=== PATIENT | female | born 1980 | race American Indian/Alaskan Native ===

== ENCOUNTER 2018-01-15 20:46 | Emergency (ER) | payer SELFPAY ==
[2018-01-15 22:21] VITALS: BP 120/69
[2018-01-16] MEDS ORDERED: MOTRIN PO ONE (00:44)
--- NOTE | 2018-01-16 00:44 | Emergency Department Report ---
HPI - General Chief Complaint: Dental/Oral Time Seen by Provider: 01/16/18 00:39 - HPI HPI: Patient here complaining of toothache to her left lower tooth. She said this has been going on for 2 days. She does not have a dentist nor does she have insurance. Patient does not have a primary care physician. Reports pain is none of the tendon aching and aggravated by eating and talking, no alleviating factors. She states that she took [id number] pain medication but it is not helping. Denies any nasal congestion, sore throat or runny nose. Denies any cough, shortness of breath or chest pain. Denies any headache. Denies any facial pain. Denies any fever or chills. Pain is 9 out of 10 and aching . ED Past Medical Hx - Past Medical History Previous Medical History?: No Hx Hypertension: No Hx Congestive Heart Failure: No Hx Diabetes: No Hx Deep Vein Thrombosis: No Hx Renal Disease: No Hx Sickle Cell Disease: No Hx Seizures: No Hx Asthma: No Hx COPD: No - Surgical History Past Surgical History?: Yes Additional Surgical History: tubal ligation - Family History Family history: no significant - Social History Smoking Status: Never Smoker Substance Use Type: None - Medications Home Medications: Home Medications Medication Instructions Recorded Confirmed Last Taken Type Iron 18 mg PO BID #60 tab 11/02/13 Unknown Rx Lidocaine/Prilocaine [Emla Cream] 5 gm TP ONCE #1 cream..g. 11/02/13 Unknown Rx Acetaminophen/Codeine [Tylenol #3] 1 tab PO Q6H PRN #15 tab 05/27/15 Unknown Rx Amoxicillin [Trimox CAP] 500 mg PO Q8H #21 capsule 05/27/15 Unknown Rx Naproxen [Naprosyn] 500 mg PO BID PRN #20 tablet 05/07/16 Unknown Rx Acetaminophen/Codeine [Tylenol 1 tab PO Q6H PRN #12 tab 01/16/18 Unknown Rx /Codeine # 3 tab] Amoxicillin [Trimox CAP] 500 mg PO Q8H 10 Days #30 capsule 01/16/18 Unknown Rx Ibuprofen [Motrin 800 MG tab] 800 mg PO TID PRN #21 tablet 01/16/18 Unknown Rx ED Review of Systems ROS: Stated complaint: TOOTHACHE Other details as noted in HPI Comment: All other systems reviewed and negative Constitutional: no symptoms reported Eyes: denies: eye pain, eye discharge ENT: dental pain. denies: ear pain, throat pain, hearing loss, epistaxis, congestion Cardiovascular: denies: chest pain, palpitations, dyspnea on exertion, orthopnea , edema, syncope, paroxysmal nocturnal dyspnea Gastrointestinal: denies: abdominal pain, nausea, vomiting, diarrhea, constipation Genitourinary: denies: dysuria, hematuria Musculoskeletal: denies: back pain, joint swelling, arthralgia, myalgia Skin: denies: rash Neurological: denies: headache, weakness, numbness, paresthesias, confusion, abnormal gait, vertigo Physical Exam - Physical Exam Vital Signs: Vital Signs 01/15/18 22:19 Temperature 98.8 F Pulse Rate 78 Respiratory 17 Rate Blood Pressure 120/69 O2 Sat by Pulse 100 Oximetry General: This is a 37-year-old female well-nourished well-developed in no acute distress. Physical Exam: Head: Normocephalic atraumatic Ears:BIateral TM pearly maki. Edouard EAC with normal exam. No mastoid bone tenderness. Mouth: Moist, no pharyngeal erythema or exudate . No tonsillar erythema or exudate. UVULA midline and oral airways patent. No peritonsillar abscess. Tooth #18 and 17 with dental caries, tenderness to palpate around gumline, patient with moderate gingivitis. No pulp exposure to tooth #18 and 17. No abscess noted. Neck: Nontender to palpate, supple, normal range of motion. No adenopathy. No c- spine tenderness. Nose: Bilateral nasal mucosa normal exam. Maxillary and frontal sinuses non- tender to palpate. Eyes: Sclerae and conjunctiva without injection. Bilateral pupils equal and reactive to light. Bilateral lids are normal. Normal accommodation.BEOMI Lungs: Clear to auscultate bilaterally, no rhonchi wheezes or rales. Normal work of breathing and no chest wall tenderness CV: S1, S2. Regular rate and rhythm negative murmur. Capillary refill is less than 3 seconds Skin: Clean dry and intact, no rashes or lesions Psych: Normal mood and behavior ED Course Vital Signs 01/15/18 22:19 Temperature 98.8 F Pulse Rate 78 Respiratory 17 Rate Blood Pressure 120/69 O2 Sat by Pulse 100 Oximetry - Reevaluation(s) Reevaluation #1: 01/16/18 01:48 Patient given Motrin 800 mg emergency room for toothache. ED Medical Decision Making - Medical Decision Making ED course: Pt with toothache and found to have multiple dental caries, gingivitis and dental tenderness. I discussed diagnosis and treatment plan with her. Patient does not have access to a dentist and I discussed with her she needs to follow up with [facility] dental clinic to call in the morning to schedule an appointment for follow-up visit. I discussed the patient that I will put her on antibiotic and pain medication but she'll need to have dentist fixed underlying problems. She was given Motrin 800 mg by mouth in emergency room. Patient discharged from emergency room in stable condition with prescription for Tylenol 3, Motrin and amoxicillin. Critical care attestation.: If time is entered above; I have spent that time in minutes in the direct care of this critically ill patient, excluding procedure time. ED Disposition Clinical Impression: Dental caries, Tooth ache, Gingivitis Disposition: TO HOME OR SELFCARE Is pt being admited?: No Does the pt Need Aspirin: No Condition: Stable Instructions: Dental Caries (ED), Toothache (ED), Gingivitis (ED) Additional Instructions: Please gargle with Listerine mouthwash twice daily Floss twice daily Follow up with [facility] dental clinic in 2-3 days please call today to schedule an appointment Take Tylenol 3 and Motrin for pain but be advised that Tylenol 3 causes drowsiness so please do not drive or operate heavy machinery while taking this medication Take amoxicillin for infection of gums. Prescriptions: Acetaminophen/Codeine [Tylenol /Codeine # 3 tab] 1 tab PO Q6H PRN #12 tab PRN Reason: Severe Pain Amoxicillin [Trimox CAP] 500 mg PO Q8H 10 Days #30 capsule Ibuprofen [Motrin 800 MG tab] 800 mg PO TID PRN #21 tablet PRN Reason: mild to moderate pain Referrals: PRIMARY CARE,MD [Primary Care Provider] - 3-5 Days [facility] [Outside] - 3-5 Days [facility] [Outside] - 01/17/18 Forms: Work/School Release Form(ED)
== END 2018-01-16 02:00 | disposition home or self-care (01) ==
LOC: ED 20:46
DX: K02.9 Dental caries, unspecified (principal); K05.00 Acute gingivitis, plaque induced; Z98.51 Tubal ligation status
CPT/HCPCS: 99282